=== PATIENT | female | born 1950 | race Caucasian/White ===

== ENCOUNTER → 2016-06-16 | Outpatient (CLI) | payer MEDICARE, OTHER ==
[~2016-06-16] MED LIST: AVONEX30 MICROGR IM; HYDROCHLOROTHIA25 MG PO; NAPROSYN500 MG PO; ULTRACET1 TABLET PO; VALIUM5 MG PO; ZOFRAN ODT4 MG PO
== END | disposition home or self-care (01) ==
LOC: CDC 14:14
DX: I45.10 Unspecified right bundle-branch block (principal); G35 Multiple sclerosis
CPT/HCPCS: 93000